=== PATIENT | male | born 1960 | race Caucasian/White ===

== ENCOUNTER 2017-08-01 09:51 | Emergency (ER) | payer MEDICARE, MEDICAID ==
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
--- NOTE | 2017-08-01 11:18 | CT ---
Head CT Technique: Multiple axial sections through the brain were obtained. Intravenous contrast was not utilized. Comparison: Prior head CT study of 12/17/13. Findings: Ventricles along the basal cisterns and sulci over the convexities are mildly prominent. Old infarct is seen within the posterior left frontal region. Old bilateral basal ganglia infarcts are seen. Minimal diminished density is noted within the periventricular white matter compatible with small vessel ischemic demyelination change. No evidence of intracranial hemorrhage. No midline shift or mass effect is seen. Bone window settings were reviewed which shows no acute calvarial abnormality. Visualized sinuses are clear. Impression: 1. Old left frontal infarct. Other senescent change as noted above. Senescent change has progressed from prior head CT exam. 2. Nothing acute is appreciated on noncontrast HCT CT exam. Diagnostic code #2
== END 2017-08-01 13:50 | disposition home or self-care (01) ==
LOC: JD.ED 09:51
DX: R41.82 Altered mental status, unspecified (principal); T50.995A Adverse effect of other drugs, medicaments and biological substances, initial encounter; F10.129 Alcohol abuse with intoxication, unspecified; G56.21 Lesion of ulnar nerve, right upper limb; Y90.0 Blood alcohol level of less than 20 mg/100 ml; Z79.899 Other long term (current) drug therapy
CPT/HCPCS: 36415; 70450; 80053; 80306; 84484; 85025; 93005; 99284; G0480; 99285

== ENCOUNTER 2020-10-30 13:40 | Emergency (ER) | payer OTHER, MEDICARE ==
[2020-10-30] MEDS ORDERED: Orphenadrine 100 MG Tab.ER PO ONE (14:49)
[2020-10-30] MEDS ORDERED: Ketorolac 60 MG/2 ML SDV IM ONE (14:49)
--- NOTE | 2020-10-30 15:19 | CT ---
Head CT Technique: Multiple axial sections through the brain were obtained. Intravenous contrast was not utilized. Reconstructed coronal and sagittal images were obtained. Comparison: Prior head CT study of 08/01/14. Findings: Old infarct is noted within the posterior left frontal and anterior temporal region. Ventricles along with basal cisterns and sulci over convexities are mildly prominent. Very minimal basal ganglia lacunar infarcts are noted which are stable. No other abnormal parenchymal densities are seen. No evidence of intracranial hemorrhage. No midline shift or mass-effect is appreciated. Bone window settings were reviewed. The visualized mastoid sinuses and paranasal sinuses show nothing acute. No acute calvarial finding is appreciated. Impression: 1. Senescent change as described above. 2. Nothing acute is appreciated on noncontrast head CT exam. Diagnostic code #2
--- NOTE | 2020-10-30 15:19 | CT ---
CT cervical spine Technique: Multiple axial sections were obtained from above C1 inferiorly through the lower T1 level. Reconstructed coronal and sagittal images were obtained. Comparison: No prior cervical spine imaging is available. Findings: Mild disc space narrowing is noted at C4-5. Moderate to severe disc space narrowing is noted at C5-6. Posterolateral spurring is noted at C2-3 which causes minimal right-sided neural foraminal stenosis. Posterolateral spurring is noted at C3-4 which causes moderate right-sided neural foraminal stenosis. Left neural foramen is fairly patent. Posterolateral spurring is noted at C4-5 which causes moderate to severe neural foraminal stenosis on the right side and mild to moderate central canal stenosis on the left side. C5-6 level shows posterolateral spurring on both sides which causes moderate left-sided neural foraminal stenosis and moderate to severe right-sided neural foraminal stenosis. Other neural foramina felt to be fairly well patent. No abnormal subluxation is appreciated. Mild scattered degenerative change is noted within the apophyseal joints. Degenerative spurring is noted within the uncovertebral joints most prominent at C4-5 and C5-6. No acute fracture is appreciated. Impression: 1. Degenerative change as noted above. 2. Nothing acute is seen. Diagnostic code #3
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
== END 2020-10-30 15:37 | disposition home or self-care (01) ==
LOC: JD.ED 13:40
DX: S13.4XXA Sprain of ligaments of cervical spine, initial encounter (principal); V43.52XA Car driver injured in collision with other type car in traffic accident, initial encounter
CPT/HCPCS: 70450; 72125; 96372; 99284; A9270; J1885

== ENCOUNTER 2020-12-06 14:47 | Emergency (ER) | payer MEDICARE, OTHER ==
--- NOTE | 2020-12-06 15:20 | EDM.PDOC ---
ED HPI GENERAL MEDICAL PROBLEM - General Chief Complaint: Cardiovascular Problem Stated Complaint: CARDIAC SYMPTOMS Time Seen by Provider: 12/06/20 14:55 - History of Present Illness INITIAL COMMENTS - FREE TEXT/NARRATIVE: 60-year-old male presents the emergency room with bilateral arm numbness and some unusual symptoms after having the Covid vaccine. Patient is a second Covid vaccine yesterday. He has some arm discomfort which is expected. But earlier today he developed some bilateral lower arm below his elbow numbness. Seem to be worse in the right arm compared to the left arm. Patient has not had symptoms like this in the past this is not associated with any chest pain breathing difficulties or shortness of breath. Patient also states that he has had 1 loose stool shortly before arrival to the emergency room. He is not having any associated abdominal discomfort. No nausea or vomiting. - Related Data Allergies Allergy/AdvReac Type Severity Reaction Status Date / Time No Known Allergies Allergy Verified 10/30/20 14:01 Home Meds: Home Meds Benztropine [Cogentin] 2 mg PO BEDTIME 08/01/17 [History] hydrOXYzine HCL [hydrOXYzine] 25 - 50 mg PO BID 10/30/20 [History] risperiDONE [Risperdal] 1 - 4 mg PO BID 10/30/20 [History] Past Medical History Musculoskeletal History: Reports: Other (See Below) Other Musculoskeletal History: pt had 365 stitches in nose Neurological History: Reports: Brain Injury Psychiatric History: Reports: Schizophrenia Social & Family History - Tobacco Use Tobacco Use Status *Q: Former Tobacco User Used Tobacco, but Quit: Yes Month/Year Tobacco Last Used: october 2019 - Caffeine Use Caffeine Use: Reports: Coffee ED ROS GENERAL - Review of Systems Review Of Systems: See Below Constitutional: Reports: No Symptoms HEENT: Reports: No Symptoms Respiratory: Reports: No Symptoms. Denies: Pleuritic Chest Pain Cardiovascular: Reports: No Symptoms Endocrine: Reports: No Symptoms GI/Abdominal: Reports: Diarrhea (1 loose stool short time ago), Vomiting. Denies: Constipation, Nausea : Reports: No Symptoms Musculoskeletal: Reports: No Symptoms Skin: Reports: No Symptoms Neurological: Reports: No Symptoms Psychiatric: Reports: No Symptoms Hematologic/Lymphatic: Reports: No Symptoms Immunologic: Reports: No Symptoms ED EXAM, GENERAL - Physical Exam Exam: See Below Exam Limited By: No Limitations General Appearance: Alert, No Apparent Distress Head: Atraumatic, Normocephalic Neck: Normal Inspection, Supple, Non-Tender, Full Range of Motion Respiratory/Chest: No Respiratory Distress, Lungs Clear, Normal Breath Sounds Cardiovascular: Regular Rate, Rhythm, No Edema, No Murmur GI/Abdominal: Normal Bowel Sounds, Soft, Non-Tender Back Exam: Normal Inspection. No: CVA Tenderness (L), CVA Tenderness (R), Paraspinal Tenderness, Vertebral Tenderness Extremities: Other (Tinel's sign is weakly positive bilaterally with distal paresthesias. Phalen's and reverse Phalen's are normal she has no tenderness over the posterior elbows in areas where the ulnar nerves run.) Psychiatric: Normal Affect, Normal Mood Skin Exam: Warm, Dry, Intact Lymphatic: No Adenopathy #1 Interpretation EKG Date: 11/25/20 Rhythm: NSR Rate (Beats/Min): 58 [place]: Normal P-Wave: Present QRS: Other (Low voltage in the extremity leads) ST-T: Normal QT: Normal Comparison: No Change EKG Interpretation Comments: Borderline EKG Course - Vital Signs Last Recorded V/S: Last Vital Signs Temp 36.3 C 12/06/20 14:56 Pulse 57 L 12/06/20 16:51 Resp 18 12/06/20 16:51 BP 126/83 12/06/20 16:51 Pulse Ox 98 12/06/20 16:51 - Orders/Labs/Meds Labs: Laboratory Tests 12/06/20 12/06/20 Range/Units 15:42 15:42 WBC 7.33 (4.23-9.07) K/mm3 RBC 5.03 (4.63-6.08) M/mm3 Hgb 14.4 (13.7-17.5) gm/dl Hct 42.5 (40.1-51.0) % MCV 84.5 (79.0-92.2) fl MCH 28.6 (25.7-32.2) pg MCHC 33.9 (32.2-35.5) g/dl RDW Std Deviation 39.0 (35.1-43.9) fL Plt Count 203 (163-337) K/mm3 MPV 9.9 (9.4-12.3) fl Neut % (Auto) 71.6 H (34.0-67.9) % Lymph % (Auto) 17.3 L (21.8-53.1) % [place] % (Auto) 10.2 (5.3-12.2) % Eos % (Auto) 0.8 (0.8-7.0) Baso % (Auto) 0.1 (0.1-1.2) % Neut # (Auto) 5.24 (1.78-5.38) K/mm3 Lymph # (Auto) 1.27 L (1.32-3.57) K/mm3 [place] # (Auto) 0.75 (0.30-0.82) K/mm3 Eos # (Auto) 0.06 (0.04-0.54) K/mm3 Baso # (Auto) 0.01 (0.01-0.08) K/mm3 Sodium 141 (136-145) mEq/L Potassium 3.9 (3.5-5.1) mEq/L Chloride 104 (98-107) mEq/L Carbon Dioxide 28 (21-32) mEq/L Anion Gap 12.9 (5-15) BUN 19 H (7-18) mg/dL Creatinine 1.3 (0.7-1.3) mg/dL Est Cr Clr Drug Dosing 67.15 mL/min Estimated GFR (MDRD) 57 (>60) mL/min BUN/Creatinine Ratio 14.6 (14-18) Glucose 105 H (70-99) mg/dL Calcium 8.5 (8.5-10.1) mg/dL Total Bilirubin 0.4 (0.2-1.0) mg/dL AST 14 L (15-37) U/L ALT 24 (16-63) U/L Alkaline Phosphatase 60 (46-116) U/L Troponin I < 0.017 (0.00-0.056) ng/mL Total Protein 7.0 (6.4-8.2) g/dl Albumin 3.6 (3.4-5.0) g/dl Globulin 3.4 gm/dL Albumin/Globulin Ratio 1.1 (1-2) - Re-Assessments/Exams Free Text/Narrative Re-Assessment/Exam: 12/06/20 16:35 Patient's labs are not very concerning he should perhaps increase his fluid intake. We will discharge at this time I spent some time discussing that he could have some symptoms related to this vaccine for the next several days if not longer. Departure - Departure Time of Disposition: 16:39 Disposition: Home, Self-Care 01 Clinical Impression: Arm numbness Referrals: Shelbi Bui MD [Primary Care Provider] - Forms: ED Department Discharge Additional Instructions: Return to the emergency room with any questions problems or concerning symptoms. As we discussed he could have lots of symptoms related to this vaccine. Increase your fluid intake. Follow-up with your regular physician in 1 week if needed. Sepsis Event Note (ED) - Evaluation Sepsis Screening Result: No Definite Risk - Focused Exam Vital Signs: Vital Signs Temp Pulse Resp BP Pulse Ox 12/06/20 16:51 57 L 18 126/83 98 12/06/20 14:56 36.3 C 57 L 16 127/83 98
== END 2020-12-06 16:52 | disposition home or self-care (01) ==
LOC: JD.ED 14:47
DX: R20.0 Anesthesia of skin (principal); Z79.899 Other long term (current) drug therapy; Z87.891 Personal history of nicotine dependence
CPT/HCPCS: 36415; 80053; 84484; 85025; 93005; 99283; 99284-25

== ENCOUNTER 2021-01-20 11:01 | Emergency (ER) | payer MEDICARE, OTHER ==
[2021-01-20] MEDS ORDERED: Haloperidol Lactate 5 MG/ML SDV IM ONE (11:25)
--- NOTE | 2021-01-20 11:40 | EDM.PDOCBH ---
ED HPI GENERAL MEDICAL PROBLEM - General Chief Complaint: Behavioral/Psych Stated Complaint: MENTAL AND BEHAVIORAL HEALTH ISSUES Time Seen by Provider: 01/20/21 11:10 Source of Information: Reports: Patient, RN Notes Reviewed History Limitations: Reports: No Limitations - History of Present Illness INITIAL COMMENTS - FREE TEXT/NARRATIVE: Patient is a 60-year-old male presenting to the emergency department accompanied by caseworkers at [facility] with complaints of paranoia and delusions. Caseworkers reports that he called them to his apartment yesterday and when they arrived he had his door boarded up. He is very paranoid and states that he feels somebody broke into his apartment and stole his belongings. Caseworkers report that on their arrival, he was hesitant to allow them in because he thought that they were actually the case workers but somebody pretending to be them. [employer], Madison, has a longstanding relationship with him and he tends to be cooperative with her. He is diagnosed schizophrenic and has apparently been off his medications for the last month. He was started back on his medications last evening and taken to the [facility] residential crisis center. He received Zyprexa and Ativan last evening as well as Zyprexa and Ativan this morning. Last dose of Ativan was about 1 hour prior to come to ER. He continues to have paranoid delusions and was trying to pack his bags to leave the residential crisis center. He also states that he feels that the workers at the residential crisis center were stealing from him. Caseworkers reports that in the past when he is gone off his medications he has required a few days of inpatient psychiatry to get stabilized. He denies any homicidal or suicidal ideation. - Related Data Allergies Allergy/AdvReac Type Severity Reaction Status Date / Time meloxicam Allergy Severe Other Verified 01/20/21 11:30 Home Meds: Home Meds Benztropine [Cogentin] 2 mg PO BEDTIME 08/01/17 [History] hydrOXYzine HCL [hydrOXYzine] 25 - 50 mg PO BID 10/30/20 [History] LORazepam [Ativan] 1 mg PO BEDTIME 01/20/21 [History] OLANZapine [ZyPREXA] 10 mg PO BID 01/20/21 [History] Past Medical History Musculoskeletal History: Reports: Other (See Below) Other Musculoskeletal History: pt had 365 stitches in nose Neurological History: Reports: Brain Injury Psychiatric History: Reports: Schizophrenia Social & Family History - Tobacco Use Tobacco Use Status *Q: Current Every Day Tobacco User Years of Tobacco use: 40 Packs/Tins Daily: 0.5 - Caffeine Use Caffeine Use: Reports: Coffee, Soda, Tea - Recreational Drug Use Recreational Drug Use: No ED ROS GENERAL - Review of Systems Review Of Systems: See Below Constitutional: Reports: No Symptoms. Denies: Fever, Chills HEENT: Reports: No Symptoms Respiratory: Reports: No Symptoms Cardiovascular: Reports: No Symptoms Endocrine: Reports: No Symptoms GI/Abdominal: Reports: No Symptoms : Reports: No Symptoms Musculoskeletal: Reports: No Symptoms Skin: Reports: No Symptoms Neurological: Denies: Dizziness, Headache Psychiatric: Reports: Agitation, Anxiety, Hallucinations, Other (paranoid thoughts). Denies: Suicidal Ideation Hematologic/Lymphatic: Reports: No Symptoms Immunologic: Reports: No Symptoms ED EXAM, BEHAVIORAL HEALTH - Physical Exam Exam: See Below Exam Limited By: Altered Mental Status General Appearance: Alert, WD/WN, No Apparent Distress Eye Exam: Bilateral Eye: PERRL Respiratory/Chest: No Respiratory Distress, Lungs Clear, Normal Breath Sounds, No Accessory Muscle Use, Chest Non-Tender Cardiovascular: Normal Peripheral Pulses, Regular Rate, Rhythm, No Edema, No Gallop, No JVD, No Murmur, No Rub GI/Abdominal: Normal Bowel Sounds, Soft, Non-Tender, No Organomegaly, No Distention, No Abnormal Bruit, No Mass Neurological: Alert, CN II-XII Intact, Normal Gait, Normal Reflexes, No Motor/Sensory Deficits, Oriented x 3 Psychiatric: Alert, Restless, Agitated, Uncooperative, Paranoid Thoughts, Other (delusions). No: Homicidal Thoughts, Suicidal Thoughts, Threatening Behavior #1 Interpretation EKG Date: 01/20/21 Time: 12:18 Rhythm: NSR Rate (Beats/Min): 63 [place]: Normal P-Wave: Present QRS: Normal ST-T: Normal QT: Normal COURSE, BEHAVIORAL HEALTH COMP - Course Vital Signs: Last Vital Signs Temp 97.5 F 01/20/21 11:24 Pulse 70 01/20/21 11:24 Resp 20 01/20/21 11:24 BP 127/96 H 01/20/21 11:24 Pulse Ox 95 01/20/21 11:24 Orders, Labs, Meds: Laboratory Tests 01/20/21 01/20/21 01/20/21 Range/Units 12:13 12:23 12:23 WBC 4.84 (4.23-9.07) K/mm3 RBC 4.49 L (4.63-6.08) M/mm3 Hgb 12.7 L D (13.7-17.5) gm/dl Hct 38.4 L (40.1-51.0) % MCV 85.5 (79.0-92.2) fl MCH 28.3 (25.7-32.2) pg MCHC 33.1 (32.2-35.5) g/dl RDW Std Deviation 42.4 (35.1-43.9) fL Plt Count 282 D (163-337) K/mm3 MPV 8.8 L (9.4-12.3) fl Neutrophils % (Manual) 67 H (40-60) % Band Neutrophils % 0 (0-10) % Lymphocytes % (Manual) 26 (20-40) % Atypical Lymphs % 0 % Monocytes % (Manual) 7 (2-10) % Eosinophils % (Manual) 0 L (0.8-7.0) % Basophils % (Manual) 0 L (0.2-1.2) Platelet Estimate Adequate Plt Morphology Comment Normal RBC Morph Comment Normal Sodium 141 (136-145) mEq/L Potassium 4.1 (3.5-5.1) mEq/L Chloride 105 (98-107) mEq/L Carbon Dioxide 25 (21-32) mEq/L Anion Gap 15.1 H (5-15) BUN 12 (7-18) mg/dL Creatinine 1.2 (0.7-1.3) mg/dL Est Cr Clr Drug Dosing 68.44 mL/min Estimated GFR (MDRD) > 60 (>60) mL/min BUN/Creatinine Ratio 10.0 L (14-18) Glucose 97 (70-99) mg/dL Calcium 8.6 (8.5-10.1) mg/dL Total Bilirubin 0.4 (0.2-1.0) mg/dL AST 15 (15-37) U/L ALT 19 (16-63) U/L Alkaline Phosphatase 53 (46-116) U/L Total Protein 6.8 (6.4-8.2) g/dl Albumin 3.5 (3.4-5.0) g/dl Globulin 3.3 gm/dL Albumin/Globulin Ratio 1.1 (1-2) TSH 3rd Generation 1.071 (0.358-3.74) uIU/mL Salicylates (2.8-20) mg/dL Urine Opiates Screen (CYMLBC=599) Ur Buprenorphine Scrn (CUTOFF=10) Ur Oxycodone Screen (CWP1BF=113) Urine Methadone Screen (SHK2FL=853) Ur Propoxyphene Screen (JISWNU=119) Acetaminophen 0 L (10-30) ug/mL Ur Barbiturates Screen (QROEQG=609) Ur Tricyclics Screen (ZWXMYM=828) Ur Phencyclidine Scrn (CUTOFF=25) Ur Amphetamine Screen (HROUAD=987) U Methamphetamines Scrn (YXHDYS=751) U Benzodiazepines Scrn (WHNVQS=493) U Cocaine Metab Screen (RDYNVV=237) U Marijuana (THC) Screen (CUTOFF=50) Ethyl Alcohol 0.00 (0.00) gm% SARS-CoV-2 RNA (HENRI) Negative (NEGATIVE) 01/20/21 01/20/21 Range/Units 12:23 13:05 WBC (4.23-9.07) K/mm3 RBC (4.63-6.08) M/mm3 Hgb (13.7-17.5) gm/dl Hct (40.1-51.0) % MCV (79.0-92.2) fl MCH (25.7-32.2) pg MCHC (32.2-35.5) g/dl RDW Std Deviation (35.1-43.9) fL Plt Count (163-337) K/mm3 MPV (9.4-12.3) fl Neutrophils % (Manual) (40-60) % Band Neutrophils % (0-10) % Lymphocytes % (Manual) (20-40) % Atypical Lymphs % % Monocytes % (Manual) (2-10) % Eosinophils % (Manual) (0.8-7.0) % Basophils % (Manual) (0.2-1.2) Platelet Estimate Plt Morphology Comment RBC Morph Comment Sodium (136-145) mEq/L Potassium (3.5-5.1) mEq/L Chloride (98-107) mEq/L Carbon Dioxide (21-32) mEq/L Anion Gap (5-15) BUN (7-18) mg/dL Creatinine (0.7-1.3) mg/dL Est Cr Clr Drug Dosing mL/min Estimated GFR (MDRD) (>60) mL/min BUN/Creatinine Ratio (14-18) Glucose (70-99) mg/dL Calcium (8.5-10.1) mg/dL Total Bilirubin (0.2-1.0) mg/dL AST (15-37) U/L ALT (16-63) U/L Alkaline Phosphatase (46-116) U/L Total Protein (6.4-8.2) g/dl Albumin (3.4-5.0) g/dl Globulin gm/dL Albumin/Globulin Ratio (1-2) TSH 3rd Generation (0.358-3.74) uIU/mL Salicylates 6.3 (2.8-20) mg/dL Urine Opiates Screen Negative (QOVTFC=309) Ur Buprenorphine Scrn Negative (CUTOFF=10) Ur Oxycodone Screen Negative (EUC5NM=893) Urine Methadone Screen Negative (DYC8UO=074) Ur Propoxyphene Screen Negative (BDBKUP=450) Acetaminophen (10-30) ug/mL Ur Barbiturates Screen Negative (KCIMUO=354) Ur Tricyclics Screen Negative (OKSEOK=785) Ur Phencyclidine Scrn Negative (CUTOFF=25) Ur Amphetamine Screen Negative (ETDZFL=745) U Methamphetamines Scrn Negative (LAACBB=231) U Benzodiazepines Scrn Negative (FBWQES=793) U Cocaine Metab Screen Negative (UGANPO=773) U Marijuana (THC) Screen Negative (CUTOFF=50) Ethyl Alcohol (0.00) gm% SARS-CoV-2 RNA (HENRI) (NEGATIVE) Medications Discontinued Medications Generic Name Dose Route Start Last Admin Trade Name Freq PRN Reason Stop Dose Admin Haloperidol Lactate 5 mg 01/20/21 11:25 01/20/21 11:38 Haloperidol Lactate 5 Mg/Ml Sdv IM 01/20/21 11:26 5 mg ONETIME ONE Administration Medical Clearance: Patient is a 60-year-old male presenting to the emergency department accompanied by caseworkers from [facility] with complaints of paranoid delusions. Patient has had a long history of schizophrenia and apparently stopped taking his medications approximately 1 month ago. His home was found to be boarded up and it took much work to get him to allow them into his apartment to evaluate him. They were able to get him to the residential crisis center last evening where his medications were resumed, however he continues to have paranoid delusions and agitation. He felt that people at the crisis center were stealing his belongings and he was trying to pack his bags to leave. [facility] has completed a committal for him with the intent for him to go to inpatient psych. On arrival to ER, he is intermittently cooperative but requires much redirection. He still believes that people are stealing his belongings and states that he does not want to be here. He is very concerned about how much this is all going to cost. I have ordered Haldol 5 mg IM to be given. I have ordered a work-up for psychiatric medical clearance. 01/20/21 14:01 Work-up was found to be grossly unremarkable. EKG shows no acute abnormalities. Drug screen is negative. EtOH is negative. Covid is negative. Case was discussed with psychiatrist on-call at [facility] in [place], Dr. Bledsoe. He has accepted the patient for admission. [facility] has been contacted for secure transport and we are awaiting a callback at this time. Patient is much more calm after the medication given. He is resting comfortably in the room. Departure - Departure Time of Disposition: 14:05 Disposition: DC/Tfer to Acute Hospital 02 Condition: Good Clinical Impression: Acute psychosis Schizophrenia Qualifiers: Schizophrenia type: unspecified Qualified Code(s): F20.9 - Schizophrenia, unspecified - Discharge Information Referrals: Shelbi Bui MD [Primary Care Provider] - Forms: ED Department Discharge Sepsis Event Note (ED) - Evaluation Sepsis Screening Result: No Definite Risk
[2021-01-20 13:00] LABS: ACETAMINOPHEN 0 ug/mL (10-30)
== END 2021-01-20 16:25 ==
LOC: JD.ED 11:01 → SUPCPDRO 11:01 → JD.ED 16:25
DX: F20.9 Schizophrenia, unspecified (principal); Z72.0 Tobacco use; Z88.8 Allergy status to other drugs, medicaments and biological substances; Z79.899 Other long term (current) drug therapy; Z20.822 Contact with and (suspected) exposure to COVID-19
CPT/HCPCS: 36415; 80053; 80143; 80179; 80306; 80307; 84443; 85007; 85027; 93005; 96372; 99285; J1630; U0002; 99284

== ENCOUNTER 2022-12-20 07:44 | Emergency (ER) | payer MEDICARE, OTHER ==
[2022-12-20] MEDS ORDERED: Haloperidol Lactate 5 MG/ML SDV IM ONE (09:08)
[2022-12-20] MEDS ORDERED: diphenhydrAMINE 50 MG/ML SDV IM ONE (09:08)
[2022-12-20] MEDS ORDERED: LORazepam 2 MG/ML SDV IM ONE (09:09)
== END 2022-12-20 09:42 | disposition home or self-care (01) ==
LOC: JD.ED 07:44
DX: F30.9 Manic episode, unspecified (principal); Z88.8 Allergy status to other drugs, medicaments and biological substances; Z72.0 Tobacco use
CPT/HCPCS: 96372; 99284; J1200; J1630; J2060

== ENCOUNTER 2024-01-25 08:03 | Emergency (ER) | payer MEDICARE, OTHER ==
[2024-01-25 08:50] LABS: BASOPHILS PERCENT AUTO 0.3 % (0.0-1.0); EOSINOPHILS ABSOLUTE AUTO 0.3 K/mm3 (0.0-0.4); EOSINOPHILS PERCENT AUTO 2.7 % (0.0-6.0); HEMATOCRIT 42.4 % (42.0-52.0); HEMOGLOBIN 14.3 gm/dl (14.0-18.0); IMMATURE GRAN ABSOLUTE AUTO 0.05 K/mm3 (0.00-0.05); IMMATURE GRAN PERCENT AUTO 0.5 % (0.0-0.4); LYMPHOCYTES ABSOLUTE AUTO 1.3 K/mm3 (1.0-4.8); MEAN CORPUSCULAR HEMOGLOBIN 28.9 pg (28.0-32.0); MEAN CORPUSCULAR HGB CONC 33.7 g/dl (32.0-36.0); MEAN CORPUSCULAR VOLUME 85.8 fl (83.0-99.0); MEAN PLATELET VOLUME 9.4 fl (9.4-12.4); MONOCYTES ABSOLUTE AUTO 0.7 K/mm3 (0.0-0.8); NEUTROPHILS ABSOLUTE AUTO 7.3 K/mm3 (1.8-7.7); NEUTROPHILS PERCENT AUTO 75.5 % (41.0-71.0); PLATELET COUNT,PLT 229 K/mm3 (150-400); RED BLOOD CELL COUNT 4.94 M/mm3 (4.52-5.90)
[2024-01-25 09:32] LABS: A/G RATIO 0.9 (1-2); ALBUMIN 3.3 g/dl (3.4-5.0); ANION GAP 11.8 (5-15); BILIRUBIN TOTAL 0.4 mg/dL (0.2-1.0); BUN/CREATININE RATIO 7.7 (14-18); C-REACTIVE PROTEIN 0.48 mg/dL (<0.30); CALCIUM 8.4 mg/dL (8.5-10.1); CREATININE 1.3 mg/dL (0.7-1.3); EST CRCL DRUG DOSING (CG) 62.75 mL/min; MAGNESIUM 1.8 mg/dL (1.8-2.4); POTASSIUM,K 3.8 mEq/L (3.5-5.1); PROTEIN TOTAL,TP 6.8 g/dl (6.4-8.2)
== END 2024-01-25 10:01 | disposition home or self-care (01) ==
LOC: JD.ED 08:03
DX: H81.10 Benign paroxysmal vertigo, unspecified ear (principal); Z79.899 Other long term (current) drug therapy; Z88.8 Allergy status to other drugs, medicaments and biological substances
CPT/HCPCS: 36415; 80053; 82947; 83735; 83930; 84484; 85025; 86140; 93005; 93010; 99282; 99284

== ENCOUNTER 2024-02-19 16:45 | Emergency (ER) | payer MEDICARE, OTHER ==
[2024-02-19 17:34] LABS: BASOPHILS PERCENT AUTO 0.3 % (0.0-1.0); EOSINOPHILS ABSOLUTE AUTO 0.2 K/mm3 (0.0-0.4); EOSINOPHILS PERCENT AUTO 1.9 % (0.0-6.0); HEMATOCRIT 44.2 % (42.0-52.0); HEMOGLOBIN 14.9 gm/dl (14.0-18.0); IMMATURE GRAN ABSOLUTE AUTO 0.05 K/mm3 (0.00-0.05); IMMATURE GRAN PERCENT AUTO 0.4 % (0.0-0.4); LYMPHOCYTES PERCENT AUTO 16.8 % (24.0-44.0); MEAN CORPUSCULAR HEMOGLOBIN 28.9 pg (28.0-32.0); MEAN CORPUSCULAR HGB CONC 33.7 g/dl (32.0-36.0); MEAN CORPUSCULAR VOLUME 85.7 fl (83.0-99.0); MEAN PLATELET VOLUME 9.3 fl (9.4-12.4); MONOCYTES ABSOLUTE AUTO 0.9 K/mm3 (0.0-0.8); MONOCYTES PERCENT AUTO 7.7 % (0.0-8.0); NEUTROPHILS ABSOLUTE AUTO 8.7 K/mm3 (1.8-7.7); NEUTROPHILS PERCENT AUTO 72.9 % (41.0-71.0); PLATELET COUNT,PLT 191 K/mm3 (150-400); RED BLOOD CELL COUNT 5.16 M/mm3 (4.52-5.90)
[2024-02-19] MEDS: Dextrose 5%-0.9% NaCl 1,000 ML IV SCH (17:42)
[2024-02-19] MEDS: HYDROmorphone 0.5 MG/0.5 ML Syringe IVPUSH ONE (17:42)
[2024-02-19] MEDS: Ondansetron 4 MG Tab.DIS PO ONE (17:42)
[2024-02-19 17:47] LABS: LACTIC ACID 1.6 mmol/L (0.4-2.0)
[2024-02-19 17:53] LABS: A/G RATIO 0.9 (1-2); ALBUMIN 3.4 g/dl (3.4-5.0); ANION GAP 12.3 (5-15); BILIRUBIN TOTAL 0.6 mg/dL (0.2-1.0); BUN/CREATININE RATIO 8.6 (14-18); C-REACTIVE PROTEIN 8.24 mg/dL (<0.30); CREATININE 1.4 mg/dL (0.7-1.3); EST CRCL DRUG DOSING (CG) 60.05 mL/min; MAGNESIUM 1.9 mg/dL (1.8-2.4); POTASSIUM,K 3.3 mEq/L (3.5-5.1); PROTEIN TOTAL,TP 7.4 g/dl (6.4-8.2)
[2024-02-19 18:27] LABS: APPEARANCE,URINE CLEAR (Clear); BILIRUBIN,URINE NEGATIVE (Negative); COLOR,URINE YELLOW (Yellow); GLUCOSE,URINE NEGATIVE (Negative); KETONES,URINE NEGATIVE (Negative); LEUKOCYTE ESTERASE,URINE 3+ (Negative); NITRITE,URINE POSITIVE (Negative); OCCULT BLOOD,URINE TRACE-INTACT (Negative); PH,URINE 6.5 (5.0-8.0); PROTEIN,URINE NEGATIVE (Negative); UROBILINOGEN,URINE 0.2 (0.2-1.0)
[2024-02-19 18:34] LABS: BACTERIA,URINE MANY /hpf (FEW); RBC,URINE 0-5 /hpf (0-5); SQUAMOUS EPITHELIAL CELLS,UR NOT SEEN /hpf (0-5); WBC,URINE 75-100 /hpf (0-5)
[2024-02-19 18:36] LABS: MUCUS,URINE NOT SEEN /hpf (FEW); WBC CLUMPS,URINE MODERATE /hpf (NOT SEEN)
[2024-02-19] MEDS: cefTRIAXone 2 GM in Sodium Chloride 0.9% 100 ML IV ONE (19:38)
== END 2024-02-19 20:45 | disposition home or self-care (01) ==
LOC: JD.ED 16:45
DX: R07.89 Other chest pain (principal); N39.0 Urinary tract infection, site not specified; E78.00 Pure hypercholesterolemia, unspecified; F17.210 Nicotine dependence, cigarettes, uncomplicated; Z79.899 Other long term (current) drug therapy; Z79.82 Long term (current) use of aspirin; Z88.8 Allergy status to other drugs, medicaments and biological substances
CPT/HCPCS: 36415; 51798; 71045; 80053; 81001; 83605; 83735; 83880; 84484; 85025; 85379; 86140; 87086; 87088; 87186; 93005; 96361; 96365; 96375; 99285; A9270; J0696; J1170; J3490; J7042; 93010; 99284